=== PATIENT | female | born 1975 | race Caucasian/White ===

== ENCOUNTER 2017-05-17 01:09 | Emergency (ER) | payer BC, OTHER ==
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
[2017-05-17] MEDS ORDERED: Ketorolac 30 MG/ML SDV IVPUSH ONE (02:09)
[2017-05-17] MEDS ORDERED: Sodium Chloride 0.9% 10 ML Syringe FLUSH PRN (02:09)
[2017-05-17] MEDS ORDERED: Sodium Chloride 0.9% 1,000 ML IV SCH (02:15)
--- NOTE | 2017-05-19 09:06 | CR ---
Right forearm The radius and ulna demonstrate normal alignment. There is no evidence for fracture. The soft tissues are unremarkable. Impression: 1. No acute findings.
--- NOTE | 2017-05-19 09:08 | CR ---
Chest 1V Frontal FINDINGS: The heart and vascular structures are normal in appearance. No infiltrates or effusions are demonstrated. The skeletal structures are unremarkable. IMPRESSION: Negative exam.
== END 2017-05-17 04:01 | disposition home or self-care (01) ==
LOC: JP.ED 01:09
DX: S50.11XA Contusion of right forearm, initial encounter (principal); V49.9XXA Car occupant (driver) (passenger) injured in unspecified traffic accident, initial encounter
CPT/HCPCS: 36415; 70450; 71010; 73090; 80048; 85025; 86850; 86900; 86901; 96374; 99284; J1885; J7040; J7050